=== PATIENT | female | born 1990 ===

== ENCOUNTER 2017-10-31 10:26 | Emergency (ER) | payer SELFPAY ==
[2017-10-31 10:34] VITALS: BP 140/92
--- NOTE | 2017-10-31 10:43 | ED ---
GI/ HPI - HPI Summary HPI Summary: 27-year-old female presents with right upper quadrant pain for the past day. States it is worse after she eats. She admits to occasional nausea but denies any vomiting. No fevers. States that has chronic diarrhea that is unchanged changed. No blood in her stool. No dysuria. No urgency, frequency, or hematuria. pain does radiate around to the back. Denies any chest pain or shortness breath. Has no medical conditions. Has had a little bit of a decreased appetite. no previously abdominal surgeries. Never had this before. has not had anything to eat today. she denies any chance of . - History of Current Complaint Chief Complaint: UCAbdominalPain Time Seen by Provider: 10/31/17 10:37 Stated Complaint: LOW BACK PAIN Hx Last Menstrual Period: 10/07/17 Pain Intensity: 6 - Allergy/Home Medications Allergies/Adverse Reactions: Allergies Allergy/AdvReac Type Severity Reaction Status Date / Time lactose Allergy abd Verified 10/31/17 10:35 cramping shellfish derived Allergy anaph Verified 10/31/17 10:35 Sulfa (Sulfonamide Allergy Swelling Verified 10/31/17 10:34 Antibiotics) PMH/Surg Hx/FS Hx/Imm Hx Endocrine/Hematology History: Denies: Hx Diabetes, Hx Thyroid Disease Cardiovascular History: Denies: Hx Hypertension Respiratory History: Denies: Hx Asthma, Hx Chronic Obstructive Pulmonary Disease (COPD) GI History: Denies: Hx Ulcer Infectious Disease History: No Infectious Disease History: Denies: Hx Hepatitis, Hx Human Immunodeficiency Virus (HIV), Traveled Outside the [place] in Last 30 Days - Family History Known Family History: Negative: Renal Disease - Social History Alcohol Use: None Substance Use Type: Reports: None Smoking Status (MU): Never Smoked Tobacco Review of Systems Negative: Fever Negative: Chest Pain Negative: Shortness Of Breath Positive: Abdominal Pain, Diarrhea - chronic, Nausea. Negative: Vomiting All Other Systems Reviewed And Are Negative: Yes Physical Exam Triage Information Reviewed: Yes Vital Signs On Initial Exam: Initial Vitals Temp Pulse Resp BP Pulse Ox 98 F 86 15 140/92 100 10/31/17 10:30 10/31/17 10:30 10/31/17 10:30 10/31/17 10:30 10/31/17 10:30 Vital Signs Reviewed: Yes Appearance: Positive: Well-Appearing Skin: Positive: Warm, Dry Head/Face: Positive: Normal Head/Face Inspection Eyes: Positive: Normal, Conjunctiva Clear ENT: Positive: Pharynx normal Respiratory/Lung Sounds: Positive: Clear to Auscultation, Breath Sounds Present Cardiovascular: Positive: Normal, RRR Abdomen Description: Positive: Other: - tenderness RUQ, neg castro. Negative: CVA Tenderness (R), CVA Tenderness (L), Guarding Musculoskeletal: Positive: Normal Neurological: Positive: Normal Psychiatric: Positive: Normal Diagnostics - Vital Signs Vital Signs Temp Pulse Resp BP Pulse Ox 10/31/17 10:30 98 F 86 15 140/92 100 - Laboratory Lab Statement: Any lab studies that have been ordered have been reviewed, and results considered in the medical decision making process. - Ultrasound No standard instances Ultrasound Interpretation: No Acute Changes - fatty liver Ultrasound Interpretation Completed By: Radiologist CATY Course/Dx - Course Course Of Treatment: 27-year-old female presents with right upper quadrant pain for the past day. States it is worse after she eats. She admits to occasional nausea but denies any vomiting. No fevers. States that has chronic diarrhea that is unchanged changed. No blood in her stool. No dysuria No urgency, frequency, or hematuria. pain does radiate around to the back. Denies any chest pain or shortness breath. Has no medical conditions. Has had a little bit of a decreased appetite. no previously abdominal surgeries. Never had this before. on exam tenderness RUQ. neg castro. u/s shows no acute findings. urine normal. discussed that do not have a cause for pain here. told if pain gets worst would have to go to ED for further work.up. patient blood pressure is elevated at this visit so will have est care with primary to follow up. - Diagnoses Differential Diagnoses - Female: Gall Bladder Disease, Pyelonephritis, Urinary Tract Infection Provider Diagnoses: Abdominal pain, Elevated blood pressure reading Discharge - Sign-Out/Discharge Documenting (check all that apply): Patient Departure All imaging exams completed and their final reports reviewed: Yes - Discharge Plan Condition: Good Disposition: HOME Patient Education Materials: Acute Abdominal Pain (ED) Referrals: [facility] [Outside] Additional Instructions: Drink small amounts of fluid as tolerated When able to eat follow BRAT diet: Bananas, rice, applesauce, toast Take ibuprofen or Tylenol for pain as needed every 6 hours est care with primary Go to ED if develop any new or worsening symptoms - Billing Disposition and Condition Condition: GOOD Disposition: Home - Attestation Statements Provider Attestation: I was available for consult. This patient was seen by the ANA. The patient was not presented to, seen by, or examined by me. -Chary
--- NOTE | 2017-10-31 11:32 | RAD ---
HISTORY: RUQ pain COMPARISONS: None TECHNIQUE: Multiple transverse and longitudinal ultrasound images were obtained of the right upper quadrant of the abdomen using grayscale and color Doppler imaging. FINDINGS: LIVER: The liver is diffusely echogenic and coarse in echotexture, with decreased acoustic transmission. The liver measures 18.3 cm in long axis.. There is normal hepatopedal flow of the portal vein on Doppler imaging. BILIARY TREE: There is no intrahepatic or extrahepatic biliary dilatation. The common duct measures 0.3 cm. GALLBLADDER: The gallbladder is well-visualized. There is no cholelithiasis, gallbladder wall thickening, pericholecystic fluid, or sonographic Beltran sign. PANCREAS: The pancreas is obscured by overlying bowel gas. RIGHT KIDNEY: The right kidney is normal in shape, size, contour, and echogenicity. There is no hydronephrosis or nephrolithiasis. The right kidney measures 12.3 x 4.3 x 5.3 cm. AORTA AND IVC: The aorta and IVC are unremarkable. FLUID: There are no pleural effusions. There is no free fluid within the hepatorenal recess. OTHER FINDINGS: None. IMPRESSION: FATTY INFILTRATION OF THE LIVER.
== END 2017-10-31 12:00 | disposition home or self-care (01) ==
LOC: UCEAST 10:26
DX: R10.11 Right upper quadrant pain (principal); R03.0 Elevated blood-pressure reading, without diagnosis of hypertension; R11.0 Nausea; K76.0 Fatty (change of) liver, not elsewhere classified; Z88.2 Allergy status to sulfonamides; Z91.013 Allergy to seafood
CPT/HCPCS: 76705; 81003; 99201; G0463